=== PATIENT | female | born 1935 | race Caucasian/White ===

== ENCOUNTER 2019-06-21 15:01 | Inpatient (IN) | payer MEDICAID, MEDICARE ==
[~2019-06-21] VITALS: Ht 157.5 cm; Wt 108.0 kg
[2019-06-21 15:01] VITALS: BP_SYST 142
--- NOTE | 2019-06-21 15:01 | NUR ---
Patient to [facility] for evaluation. Side rails up.
--- NOTE | 2019-06-21 15:30 | NUR ---
Patient came to the ER with complaint of shoulder and lower back pain. The patient rated the pain as 6/10. Patient has lost mobility and often bed bound per patient. Patient not presenting any signs of acute distress.
--- NOTE | 2019-06-21 15:40 | NUR ---
АННА Morton at bedside examining patient.
[2019-06-21] MEDS ORDERED: NACL 0.9% 1,000 ML IV ONE ×3 (17:00→20:45)
[2019-06-21] MEDS ORDERED: MORPHINE 4 MG/ML INJ. SYRINGE IVP ONE (17:00)
--- NOTE | 2019-06-21 18:00 | NUR ---
Patient in bed who advised that her pain is now 3/10. Patient is still complaining of discomfort of her lower back. Patient not presenting any signs of acute distress.
[2019-06-21 18:13] LABS: BASOPHILS % (AUTO) 0.4 % (0.0-2.0); EOSINOPHILS # (AUTO) 0.1 K/uL (0.0-0.4); EOSINOPHILS % (AUTO) 0.7 % (0.0-4.0); HEMATOCRIT 34.3 % (36-48); HEMOGLOBIN 11.5 g/dL (12.0-16.0); LYMPHOCYTES % (AUTO) 36.5 % (20.5-51.5); MEAN CORPUSCULAR HEMOGLOBIN 28 pg (27-31); MEAN CORPUSCULAR HGB CONC 34 % (32-36); MEAN CORPUSCULAR VOLUME 82 fL (79.0-98.0); MONOCYTES # (AUTO) 0.6 K/uL (0.0-1.0); MONOCYTES % (AUTO) 5.7 % (1.7-9.3); NEUTROPHILS # (AUTO) 6.2 K/uL (1.8-7.7); NEUTROPHILS % (AUTO) 56.7 % (40.0-70.0); PLATELET COUNT (AUTO) 272 K/uL (130-430); RED BLOOD CELL COUNT(AUTO) 4.16 MIL/uL (4.2-6.2); RED CELL DISTRIBUTION WIDTH 14.1 % (9.0-15.0)
[2019-06-21 18:26] LABS: ANION GAP 11 (5-15); CALCIUM 9.3 mg/dL (8.4-11.0); CREATININE 2.79 mg/dL (0.55-1.30); GLUCOSE 127 mg/dL (70-99); SODIUM SERUM 120 mmol/L (136-145); UREA NITROGEN, BLOOD 38 mg/dL (8-21)
[2019-06-21 18:32] LABS: ALANINE AMINOTRANSFERASE 26 U/L (12-78); ALBUMIN 3.5 g/dL (3.4-4.8); ASPARTATE AMINOTRANSFERASE 32 U/L (10-37); TOTAL BILIRUBIN 0.5 mg/dL (0.0-1.0)
[2019-06-21 18:34] LABS: CHLORIDE 83 mmol/L (98-107)
[2019-06-21 18:55] LABS: BILIRUBIN,URINE NEGATIVE (NEGATIVE); BLOOD, URINE NEGATIVE (NEGATIVE); COLOR,URINE YELLOW (YELLOW); GLUCOSE,URINE NEGATIVE (NEGATIVE); KETONES,URINE NEGATIVE (NEGATIVE); LEUKOCYTE ESTERASE ,URINE TRACE (NEGATIVE); NITRITE, URINE NEGATIVE (NEGATIVE); PROTEIN URINE NEGATIVE (NEGATIVE); UROBILINOGEN,URINE 0.2 (0.2-1.0)
[2019-06-21 19:11] LABS: CLARITY/URINE SLIGHTLY HAZY (CLEAR)
--- NOTE | 2019-06-21 19:26 | NUR ---
Report recieved from MICAELA Zapien to endorse all care.
[2019-06-21] MEDS ORDERED: cefTRIAXone 1 GM IVPB PREMIX 50 ML IV ONE (19:45)
--- NOTE | 2019-06-21 20:10 | NUR ---
MICAELA Paz at bedside medicating pt.
[2019-06-21 20:13] LABS: BACTERIA,URINE FEW /HPF (None Seen); RBC,URINE 0-3 /HPF (0-3)
[2019-06-21 20:14] LABS: FINE GRANULAR CASTS,URINE 0-10 /LPF (None Seen); MUCUS,URINE 2+ /LPF (None Seen)
--- NOTE | 2019-06-21 20:43 | NUR ---
Patient will be admitted to care of [facility]. Admitted to Telemetry unit. Will go to room 103A. Belongings list completed. Complete and up to date summary report printed. SBAR report to be given at bedside with opportunity for questions.
[2019-06-21] MEDS ORDERED: cefTRIAXone 1 GM VIAL IM SCH (21:00)
--- NOTE | 2019-06-21 21:15 | NUR ---
ADMISSION NOTE Received patient from ER via gurney. Patient admitted with diagnosis of CELLULITIS. Patient is awake, alert, oriented. Patient oriented to hospital room, call light, toileting, pain management and safety-teach back done. Patient informed that LUIS will be HIS nurse and that their room number is 124A. Personal belongings checked and Belongings List documented. Call light within reach.
--- NOTE | 2019-06-21 21:27 | NUR ---
Transfer to Telemetry room 103A via ACLS protocol. Licensed nurse present. IV present no signs or symptoms of infiltration.
[2019-06-21] MEDS ORDERED: ACET-2165 PO (21:43)
[2019-06-21] MEDS ORDERED: POTA10TA15 PO (21:43)
[2019-06-21] MEDS ORDERED: GLIP10TA21 PO (21:43)
[2019-06-21] MEDS ORDERED: DEXT30DR6 EACH EYE (21:43)
[2019-06-21] MEDS ORDERED: SENN-278 PO (21:43)
[2019-06-21] MEDS ORDERED: ASCO500T20 PO (21:43)
[2019-06-21] MEDS ORDERED: DOCU-144 PO (21:43)
[2019-06-21] MEDS ORDERED: METO5TAB8 PO (21:43)
[2019-06-21] MEDS ORDERED: GLU500 PO (21:43)
[2019-06-21] MEDS ORDERED: HYDR-4274 PO (21:43)
[2019-06-21] MEDS ORDERED: LOSA100T3 PO (21:43)
[2019-06-21] MEDS ORDERED: MULT1TAB74 PO (21:43)
[2019-06-21] MEDS ORDERED: ANAS1TAB51 PO (21:43)
[2019-06-21] MEDS ORDERED: MOM PO (21:43)
[2019-06-21] MEDS ORDERED: PRO40 PO (21:43)
[2019-06-21] MEDS ORDERED: BISA-79 RC (21:43)
[2019-06-21] MEDS ORDERED: FURO-149 PO (21:43)
[2019-06-21] MEDS ORDERED: AMLO5TAB4 PO (21:43)
[2019-06-21] MEDS ORDERED: ROPI0.252 PO (21:43)
--- NOTE | 2019-06-21 21:44 | NUR ---
Medication reconciliation completed with information provided by [facility]. Any prior medication reconciliation on file was reviewed and corrected.
--- NOTE | 2019-06-21 21:47 | NUR ---
ADMISSION NOTE Received patient from ER via gurney. Patient admitted with diagnosis of UTI/HYPONATREMIA. Patient is awake, alert, oriented X 1. Patient oriented to hospital room, call light, toileting, pain management and safety-teach back done. Patient informed that ERIC will be HER nurse and that their room number is 103A. Personal belongings checked and Belongings List documented. Call light within reach.
--- NOTE | 2019-06-21 22:00 | NUR ---
INITIAL NOTES PATIENT IS RESTING IN BED AND STABLE. NO S/S OF RESPIRATORY DISTRESS NOTED. PATIENT UNSUCCESSFULLY DEMONSTRATES USAGE OF CALL LIGHT AT THIS TIME. WILL CONTINUE TO MONITOR. BED IS LOCKED, ALARMED, AND AT THE LOWEST POSITION. FALL, SAFETY, ASPIRATION, AND RESPIRATORY PRECAUTIONS WILL BE IN PLACE THROUGHOUT THE SHIFT. PLAN OF CARE IS DISCUSSED WITH PATIENT AT THIS TIME.
[2019-06-21 22:01] VITALS: BP_SYST 138
[2019-06-21] MEDS: NACL 0.9% 1,000 ML IV SCH (22:52)
[2019-06-21] MEDS ORDERED: ACETAMINOPHEN 325 MG TABLET PO PRN (23:00)
[2019-06-21] MEDS ORDERED: MILK OF MAGNESIA 30 ML UDC PO PRN (23:00)
[2019-06-21] MEDS ORDERED: BISACODYL 5 MG TABLET.DR (DULCOLAX) PO PRN (23:00)
[2019-06-21] MEDS: HYDROcodone/ACETAMIN 10-325 MG TAB PO PRN (23:06)
[2019-06-22] VITALS: BP_SYST 146
--- NOTE | 2019-06-22 | NUR ---
ROUNDING PATIENT IS RESTING IN BED AND STABLE. NO S/S OF RESPIRATORY DISTRESS NOTED. CALL LIGHT IN REACH. BED IS LOCKED, ALARMED, AND AT THE LOWEST POSITION.
--- NOTE | 2019-06-22 00:04 | NUR ---
Nephro Consultation Paged Reason for consultation: Renal Failure Was consult called: Yes Person who was notified: Madalyn Consulting Physician: Dr Worley Quality Assurance Technician Quality Assurance Technician Specialty: Nephrology Ordered By: Dr Sahu
[2019-06-22] MEDS ORDERED: FLU VACC TS2019(65UP)/MF59C/PF 45 MCG/0.5 ML SYRINGE I.M. PRN (03:00)
--- NOTE | 2019-06-22 04:00 | NUR ---
ROUNDING PATIENT URINATED AT THIS TIME. PATIENT CLEANED AND CHANGED. PATIENT TOLERATED WELL. NO S/S OF RESPIRATORY DISTRESS. CALL LIGHT IN REACH. BED IS LOCKED, ALARMED, AND AT THE LOWEST POSITION.
--- NOTE | 2019-06-22 06:00 | NUR ---
CLOSING NOTES PATIENT IS STABLE AND LAYING IN BED. NO S/S OF RESPIRATORY DISTRESS NOTED. CALL LIGHT IN REACH. BED IS LOCKED, ALARMED, AND AT THE LOWEST POSITION. FALL, SAFETY, ASPIRATION, AND RESPIRATORY PRECAUTIONS HAS BEEN IN PLACE THROUGHOUT THE SHIFT. ALL NEEDS MET. WILL CONTINUE TO MONITOR UNTIL REPORT IS GIVEN TO AM NURSE BY BEDSIDE.
[2019-06-22] MEDS: NACL 0.9% 1,000 ML IV SCH ×2 (06:19→20:16)
[2019-06-22 07:19] LABS: BASOPHILS # (AUTO) 0.1 K/uL (0.0-0.2); BASOPHILS % (AUTO) 0.6 % (0.0-2.0); EOSINOPHILS # (AUTO) 0.1 K/uL (0.0-0.4); EOSINOPHILS % (AUTO) 0.8 % (0.0-4.0); HEMATOCRIT 32.9 % (36-48); HEMOGLOBIN 11.1 g/dL (12.0-16.0); LYMPHOCYTES # (AUTO) 3.3 K/uL (1.0-5.5); LYMPHOCYTES % (AUTO) 36.7 % (20.5-51.5); MEAN CORPUSCULAR HEMOGLOBIN 28 pg (27-31); MEAN CORPUSCULAR HGB CONC 34 % (32-36); MEAN CORPUSCULAR VOLUME 82 fL (79.0-98.0); MONOCYTES # (AUTO) 0.7 K/uL (0.0-1.0); MONOCYTES % (AUTO) 7.8 % (1.7-9.3); NEUTROPHILS # (AUTO) 4.8 K/uL (1.8-7.7); NEUTROPHILS % (AUTO) 54.1 % (40.0-70.0); PLATELET COUNT (AUTO) 238 K/uL (130-430); RED BLOOD CELL COUNT(AUTO) 3.99 MIL/uL (4.2-6.2)
--- NOTE | 2019-06-22 07:35 | NUR ---
INITIAL NOTE PT RESTING IN BED, NO ACUTE DISTRESS NOTED, BREATHING EVEN AND UNLABORED. IVF INFUSING WELL. SCD'S OFF AT THIS TIME. CALL LIGHT WITHIN REACH, BED IN LOW AND LOCKED POSITION WITH BED ALARM ON.
--- NOTE | 2019-06-22 07:45 | NUR ---
CRITICAL LAB/PAGED DR. SRIVASTAVA AWAITING RETURN CALL.
[2019-06-22 07:46] LABS: ANION GAP 7 (5-15); CALCIUM 8.7 mg/dL (8.4-11.0); CHLORIDE 90 mmol/L (98-107); CREATININE 2.15 mg/dL (0.55-1.30); GLUCOSE 95 mg/dL (70-99); POTASSIUM 4.1 mmol/L (3.5-5.1); SODIUM SERUM 126 mmol/L (136-145); UREA NITROGEN, BLOOD 34 mg/dL (8-21)
[2019-06-22 08:00] VITALS: BP_SYST 134
[2019-06-22 08:29] LABS: CKMB RELATIVE INDEX 0.9 (0.0-2.9)
[2019-06-22] MEDS ORDERED: cefTRIAXone 1 GM VIAL IV SCH (09:00)
[2019-06-22] MEDS: roPINIRole HCL 0.25 MG ( REQUIP )TABLET PO SCH (09:11)
[2019-06-22] MEDS: ANASTROZOLE 1 MG TABLET (ARIMIDEX) PO SCH (09:12)
[2019-06-22] MEDS: glipiZIDE XL 5 MG TAB ( GLUCOTROL XL) PO SCH ×2 (09:12→20:17)
[2019-06-22] MEDS: DOCUSATE SODIUM 100 MG CAPSULE PO SCH (09:13)
[2019-06-22] MEDS: SENNOSIDES/DOCUSATE SODIUM 1 TAB TABLET(SENOKOT-S) PO SCH (09:13)
[2019-06-22] MEDS: METOLAZONE 5 MG TABLET PO SCH (09:13)
[2019-06-22] MEDS: PANTOPRAZOLE SODIUM 40 MG TAB PO SCH (09:14)
[2019-06-22] MEDS: ASCORBIC ACID 500 MG TABLET PO SCH (09:14)
[2019-06-22] MEDS: amLODIPine BESYLATE 5 MG TABLET PO SCH (09:14)
[2019-06-22] MEDS: POTASSIUM CHLORIDE 10 MEQ TAB.PRT.SR PO SCH (09:14)
[2019-06-22] MEDS: LOSARTAN POTASSIUM 50 MG TABLET (COZAAR) PO SCH (09:15)
[2019-06-22] MEDS: HYDROcodone/ACETAMIN 10-325 MG TAB PO PRN ×3 (09:25→20:20)
--- NOTE | 2019-06-22 09:42 | NUR ---
Nutrition Update Jameson Scale 14 noted. Pt admitted for UTI/hyponatremia. Diet: CCHO, mechanical soft BMI: 43.5 kg/m2 RD to follow per nutrition care standards.
[2019-06-22] MEDS ORDERED: CEFEPIME IV SCH (11:00)
[2019-06-22] MEDS ORDERED: D5W IV SCH (11:00)
[2019-06-22] MEDS: INSULIN REGULAR, HUMAN 100 UNITS/ML, 10 ML VIAL (humuLIN R) SUBCUT PRN ×2 (11:20→20:19)
[2019-06-22] MEDS: PEG 400/HYPROMELLOSE/GLYCERIN 15 ML DROPS EACH EYE SCH ×2 (11:21→20:16)
--- NOTE | 2019-06-22 11:30 | NUR ---
BSG 152/ 2D ECHO AT BEDSIDE EDUCATED PT ON INSULIN COVERAGE, PT VERBALIZED UNDERSTANDING. 2 UNITS PER SLIDING SCALE OF REGULAR INSULIN ADMINISTERED.
[2019-06-22 12:00] VITALS: BP_SYST 102
--- NOTE | 2019-06-22 13:30 | NUR ---
RN ROUNDS PT AWAKE, WATCHING TELEVISION. PAIN CONTROLLED AT THIS TIME. WILL CONTINUE TO MONITOR.
--- NOTE | 2019-06-22 16:07 | NUR ---
INCONTINENT PT INCONTINENT OF BLADDER. CHANGED PT AND REPOSITIONED FOR COMFORT. PT TOLERATED WELL.
[2019-06-22 16:32] VITALS: BP_SYST 129
--- NOTE | 2019-06-22 18:00 | NUR ---
RN ROUNDS NO PAGAN IN ASSESSMENT, PT AWAKE, WATCHING TELEVISION, PAIN CONTROLLED AT THIS TIME. WILL CONTINUE TO MONITOR.
--- NOTE | 2019-06-22 19:05 | NUR ---
OPENING NOTE: Patient is awake, AOx4. No s/s of acute distress. Breathing is even and unlabored. IVF is infusing well. IV site has no s/s of infection or infiltration. SCDs are attached and operating. Bed alarm in place. Bed is locked and in lowest position. Call light in place.
--- NOTE | 2019-06-22 19:25 | NUR ---
DR. CAROLA OLSON AT BEDSIDE EXAMINING PT. INFORMED MD OF PTS ELEVATED TROPONIN 0.122, SHOWED PT BUG BITE ON RIGHT LOWER GARCIA. NEW ORDERS RECEIVED, BACTROBAN OINTMENT TO BE APPLIED ON WOUND AND COVERED WITH FOAM DRESSING, CARDIO CONSULT WITH DR. ARIAS TO BE ORDERED. VERIFIED WITH READ BACK.
--- NOTE | 2019-06-22 19:30 | NUR ---
CLOSING NOTE PT AWAKE, DENIES ANY PAIN OR DISCOMFORT. IVF INFUSING WELL. RIGHT SCD OFF AT THIS TIME TO KEEP WOUND OPEN TO AIR PER MD ORDERS UNTIL OINTMENT IS ORDERED. CALL LIGHT WITHIN REACH, BED IN LOW AND LOCKED POSITION WITH BED ALARM ON. ALL NEEDS MET THROUGHOUT SHIFT. PT CARE ENDORSED TO DOUBLE ENDING MACHINE OPERATOR RNANDRÉS.
[2019-06-22 20:00] VITALS: BP_SYST 139
[2019-06-22 20:30] LABS: CKMB RELATIVE INDEX 0.4 (0.0-2.9); CREATINE KINASE MB 7.5 ng/mL (0-3.6)
--- NOTE | 2019-06-22 21:20 | NUR ---
PAIN: Patient is in bed without signs of acute distress. C/o of pain /. Breathing is even and unlabored. PRN medication given. Call light in place. Bed alarm on. Bed is locked in the lowest position. Will continue to monitor.
--- NOTE | 2019-06-22 23:20 | NUR ---
ROUNDS/DARLENE CARE: Patient in awake in bed. No signs of acute distress. Breathing is even and unlabored. Darlene care done by RN. Patient tolerated well. Call light in place. Bed alarm on. Bed is locked and in lowest position. Will continue to monitor.
[2019-06-23] VITALS: BP_SYST 138
[2019-06-23] MEDS: HYDROcodone/ACETAMIN 10-325 MG TAB PO PRN ×5 (00:47→20:38)
--- NOTE | 2019-06-23 01:00 | NUR ---
ROUNDS/DARLENE CARE/LINEN CHANGE: Patient is awake in bed without signs of acute distress. Darlene care and linen change done by RN and LINTER DRIER OPERATOR. Patient tolerated well. Call light in place. Bed alarm is on. Bed is locked in the lowest position. Will continue to monitor.
--- NOTE | 2019-06-23 03:00 | NUR ---
NEW IV Previous IV site got accidentally pulled out, catheter fully intact, no active bleeding noted. New IV site at right AC, 22 gauge. Patient tolerated well. IVF infusing well. Call light with patient. Bed alarm on. Will continue to monitor.
--- NOTE | 2019-06-23 05:00 | NUR ---
ROUNDS: Patient is asleep at this time. Breathing is even and unlabored. Call light within reach. Bed alarm on. Will continue to monitor.
[2019-06-23] MEDS: INSULIN REGULAR, HUMAN 100 UNITS/ML, 10 ML VIAL (humuLIN R) SUBCUT PRN ×3 (06:12→20:36)
--- NOTE | 2019-06-23 06:33 | NUR ---
ACCU CHECK/SNACKS GIVEN/CLOSING NOTE: Patient is resting at this time. Breathing is even and unlabored. IVF are infusing well. Skin is warm and dry. No signs of hypoglycemia. Accu check done, BS at 76, snacks given to patient, patient tolerated well. IV site is without signs of infiltration or infection. SCDs are attached and operating. Fall and safety precautions met throughout the shift. All needs met throughout the shift. Will continue to monitor until care endorsed to dayshift nurse.
[2019-06-23 07:19] LABS: BASOPHILS % (AUTO) 0.5 % (0.0-2.0); EOSINOPHILS # (AUTO) 0.2 K/uL (0.0-0.4); EOSINOPHILS % (AUTO) 2.1 % (0.0-4.0); HEMATOCRIT 32.5 % (36-48); HEMOGLOBIN 10.7 g/dL (12.0-16.0); LYMPHOCYTES # (AUTO) 2.7 K/uL (1.0-5.5); LYMPHOCYTES % (AUTO) 36.6 % (20.5-51.5); MEAN CORPUSCULAR HEMOGLOBIN 28 pg (27-31); MEAN CORPUSCULAR HGB CONC 33 % (32-36); MEAN CORPUSCULAR VOLUME 84 fL (79.0-98.0); MONOCYTES # (AUTO) 0.6 K/uL (0.0-1.0); NEUTROPHILS # (AUTO) 3.9 K/uL (1.8-7.7); NEUTROPHILS % (AUTO) 52.8 % (40.0-70.0); PLATELET COUNT (AUTO) 234 K/uL (130-430); RED BLOOD CELL COUNT(AUTO) 3.88 MIL/uL (4.2-6.2); WHITE BLOOD COUNT (AUTO) 7.4 K/uL (4.8-10.8)
[2019-06-23 07:57] LABS: ALANINE AMINOTRANSFERASE 32 U/L (12-78); ALBUMIN 3.1 g/dL (3.4-4.8); ANION GAP 8 (5-15); ASPARTATE AMINOTRANSFERASE 68 U/L (10-37); CALCIUM 9.2 mg/dL (8.4-11.0); CHLORIDE 94 mmol/L (98-107); CREATININE 1.49 mg/dL (0.55-1.30); GLUCOSE 77 mg/dL (70-99); SODIUM SERUM 131 mmol/L (136-145); TOTAL BILIRUBIN 0.6 mg/dL (0.0-1.0); UREA NITROGEN, BLOOD 27 mg/dL (8-21)
--- NOTE | 2019-06-23 07:57 | NUR ---
INITIAL NOTE PT RESTING IN BED, NO ACUTE DISTRESS NOTED, BREATHING EVEN AND UNLABORED. IVF INFUSING WELL. LEFT SCD IN PLACE. RIGHT LEG HAS BUG BITE, PER MD DOES NOT WANT SCD ON RIGHT LEG. CALL LIGHT WITHIN REACH, BED IN LOW AND LOCKED POSITION WITH BED ALARM ON.
--- NOTE | 2019-06-23 08:50 | NUR ---
Cardiac consult called; for Dr. Reardon, regarding elevated troponins, ordered by Dr. Sahu, spoke with Sofie.
[2019-06-23] MEDS: PEG 400/HYPROMELLOSE/GLYCERIN 15 ML DROPS EACH EYE SCH ×2 (09:03→20:37)
[2019-06-23] MEDS: METOLAZONE 5 MG TABLET PO SCH (09:03)
[2019-06-23] MEDS: glipiZIDE XL 5 MG TAB ( GLUCOTROL XL) PO SCH ×2 (09:03→20:37)
[2019-06-23] MEDS: roPINIRole HCL 0.25 MG ( REQUIP )TABLET PO SCH (09:03)
[2019-06-23] MEDS: ASCORBIC ACID 500 MG TABLET PO SCH (09:04)
[2019-06-23] MEDS: SENNOSIDES/DOCUSATE SODIUM 1 TAB TABLET(SENOKOT-S) PO SCH (09:04)
[2019-06-23] MEDS: LOSARTAN POTASSIUM 50 MG TABLET (COZAAR) PO SCH (09:04)
[2019-06-23] MEDS: amLODIPine BESYLATE 5 MG TABLET PO SCH (09:04)
[2019-06-23] MEDS: PANTOPRAZOLE SODIUM 40 MG TAB PO SCH (09:04)
[2019-06-23] MEDS: DOCUSATE SODIUM 100 MG CAPSULE PO SCH (09:04)
[2019-06-23] MEDS: POTASSIUM CHLORIDE 10 MEQ TAB.PRT.SR PO SCH (09:04)
[2019-06-23] MEDS: ANASTROZOLE 1 MG TABLET (ARIMIDEX) PO SCH (09:04)
--- NOTE | 2019-06-23 09:42 | NUR ---
CRITICAL LAB/ DR. JUANA OLSON AT BEDSIDE EXAMINING PT. MITCHELL OLSON OF TROPONIN LEVELS TRENDING DOWN. EKG BEING DONE AT BEDSIDE.
[2019-06-23 09:58] VITALS: BP_SYST 121
[2019-06-23] MEDS ORDERED: ASPIRIN 81 MG TAB.CHEW PO ONE (10:15)
[2019-06-23] MEDS: NACL 0.9% 1,000 ML IV SCH ×2 (10:28→23:58)
[2019-06-23] MEDS ORDERED: CEFEPIME 0.5 GM in D5W 50 ML IV SCH (12:00)
--- NOTE | 2019-06-23 12:00 | NUR ---
BOWEL MOVEMENT PT INCONTINENT OF BOWEL. CHANGED LINEN AND PATIENT GOWN. REPOSITIONED FOR COMFORT. PT TOLERATED WELL.
[2019-06-23 12:12] VITALS: BP_SYST 135
--- NOTE | 2019-06-23 14:00 | NUR ---
MICAELA KRAMER APPLIED OINTMENT TO WOUND, COVERED WITH FOAM DRESSING. PT TOLERATED WELL.
[2019-06-23] MEDS: MUPIROCIN 2% TOPICAL OINTMENT 22 GM TP PRN (14:23)
--- NOTE | 2019-06-23 15:01 | NUR ---
Dietitian Recommendations * Recommend continuing MICHELLE, purelio diet (ONS Glucerelayne TID comes standard w/ this meal; provides 660 kcal/day, 30 gm protein/day) * Encourage increase PO intakes LP, RD Please refer to Nutrition Assessment for details. Addendum: 06/23/19 at [address] Amended: Links added.
--- NOTE | 2019-06-23 16:00 | NUR ---
RN ROUNDS NO CHANGE IN ASSESSMENT, WILL CONTINUE TO MONITOR.
[2019-06-23 16:10] VITALS: BP_SYST 153
--- NOTE | 2019-06-23 19:20 | NUR ---
OPENING NOTE: Bedside report received by dayshift nurse. Patient is awake, AOx4. No s/s of acute distress. Breathing is even and unlabored. IVF infusing well. IV site without signs of infiltration or infection. SCDs not attached at this time. Patient c/o pain bilateral lower extremities. Call light with patient. Bed alarm on. Bed locked in lowest position. Will continue to monitor.
--- NOTE | 2019-06-23 19:25 | NUR ---
CLOSING NOTE PT RESTING IN BED. NO ACUTE DISTRESS NOTED, BREATHING EVEN AND UNLABORED. IVF INFUSING WELL. SCD'S OFF AT THIS TIME DUE TO IRRITATION OF RIGHT CALF. MD INFORMED. CALL LIGHT WITHIN REACH, BED IN LOW AND LOCKED POSITION WITH BED ALARM ON. ALL NEEDS MET THROUGHOUT SHIFT. PT CARE ENDORSED TO TELEVISION EQUIPMENT OPERATOR RN.
[2019-06-23 20:00] VITALS: BP_SYST 130
--- NOTE | 2019-06-23 21:43 | NUR ---
paged paged for Dr Baeza. dialed . s/w Velma.
[2019-06-23] MEDS ORDERED: ENOXAPARIN SODIUM 100 MG/ML SYRINGE SUBCUT ONE (21:53)
--- NOTE | 2019-06-23 21:58 | NUR ---
SPOKE TO DR. ABERNATHY RE: DOPPLER RESULT Spoke to Dr. Abernathy at this time regarding prelim results of venous doppler. Results read to MD. ordered Lovenox 100mg SQ Q12H. Will carry out orders.
[2019-06-23 23:31] VITALS: BP_SYST 104
--- NOTE | 2019-06-23 23:45 | NUR ---
DARLENE CARE: Patient awake at this time. Darlene care done by RN. Patient tolerated well. Breathing is even and unlabored. Call light with patient. Bed alarm on. All needs met at this time. Will continue to monitor.
--- NOTE | 2019-06-24 01:23 | NUR ---
ROUNDS: Patient is resting at this time. Patient states she is comfortable at this time. Call light with patient. Bed alarm on. Will continue to monitor.
--- NOTE | 2019-06-24 03:30 | NUR ---
ROUNDS: Patient is asleep at this time. Breathing is even and unlabored. Call light within reach. Bed alarm on. Will continue to monitor.
[2019-06-24] MEDS: HYDROcodone/ACETAMIN 10-325 MG TAB PO PRN ×4 (04:31→21:11)
--- NOTE | 2019-06-24 05:15 | NUR ---
ROUNDS: Patient is asleep at this time. Breathing is even and unlabored. Call light with patient. Bed alarm on. Will continue to monitor.
--- NOTE | 2019-06-24 06:38 | NUR ---
ACCU CHECK/SNACKS GIVEN/CLOSING NOTE: Patient is resting at this time. Breathing is even and unlabored. IVF are infusing well. Skin is warm and dry. No signs of hypoglycemia. Accu check done, BS at 86, IV site is without signs of infiltration or infection. SCDs are attached and operating. Fall and safety precautions met throughout the shift. All needs met throughout the shift. Will continue to monitor until care endorsed to dayshift nurse. Addendum: 06/24/19 at 0639 by Kassandra Finn RN CORRECTION: SCDs are removed due to patient c/o of pain.
[2019-06-24] MEDS: INSULIN REGULAR, HUMAN 100 UNITS/ML, 10 ML VIAL (humuLIN R) SUBCUT PRN ×2 (06:44→11:21)
[2019-06-24 07:35] LABS: ANION GAP 7 (5-15); CALCIUM 9.1 mg/dL (8.4-11.0); CHLORIDE 95 mmol/L (98-107); GLUCOSE 70 mg/dL (70-99); POTASSIUM 4.2 mmol/L (3.5-5.1); SODIUM SERUM 127 mmol/L (136-145)
[2019-06-24 07:36] LABS: ALANINE AMINOTRANSFERASE 36 U/L (12-78); ASPARTATE AMINOTRANSFERASE 56 U/L (10-37); BASOPHILS % (AUTO) 0.6 % (0.0-2.0); CHOLESTEROL 169 mg/dL (<200); CREATININE 1.12 mg/dL (0.55-1.30); EOSINOPHILS # (AUTO) 0.2 K/uL (0.0-0.4); EOSINOPHILS % (AUTO) 2.2 % (0.0-4.0); HDL CHOLESTEROL 76 mg/dL (>55); HEMATOCRIT 31.1 % (36-48); HEMOGLOBIN 10.3 g/dL (12.0-16.0); LDL CHOLESTEROL 73 mg/dL (<100); LYMPHOCYTES # (AUTO) 2.6 K/uL (1.0-5.5); LYMPHOCYTES % (AUTO) 35.3 % (20.5-51.5); MEAN CORPUSCULAR HEMOGLOBIN 28 pg (27-31); MEAN CORPUSCULAR HGB CONC 33 % (32-36); MEAN CORPUSCULAR VOLUME 84 fL (79.0-98.0); MONOCYTES # (AUTO) 0.5 K/uL (0.0-1.0); MONOCYTES % (AUTO) 7.2 % (1.7-9.3); NEUTROPHILS # (AUTO) 4.1 K/uL (1.8-7.7); NEUTROPHILS % (AUTO) 54.7 % (40.0-70.0); PLATELET COUNT (AUTO) 236 K/uL (130-430); RED CELL DISTRIBUTION WIDTH 14.1 % (9.0-15.0); TOTAL BILIRUBIN 0.6 mg/dL (0.0-1.0); TRIGLYCERIDES 63 mg/dL (30-150); UREA NITROGEN, BLOOD 22 mg/dL (8-21); WHITE BLOOD COUNT (AUTO) 7.5 K/uL (4.8-10.8)
[2019-06-24 08:00] VITALS: BP_SYST 122
[2019-06-24] MEDS: POTASSIUM CHLORIDE 10 MEQ TAB.PRT.SR PO SCH (08:55)
[2019-06-24] MEDS: amLODIPine BESYLATE 5 MG TABLET PO SCH (08:55)
[2019-06-24] MEDS: glipiZIDE XL 5 MG TAB ( GLUCOTROL XL) PO SCH ×2 (08:55→21:37)
[2019-06-24] MEDS: SENNOSIDES/DOCUSATE SODIUM 1 TAB TABLET(SENOKOT-S) PO SCH (08:55)
[2019-06-24] MEDS: LOSARTAN POTASSIUM 50 MG TABLET (COZAAR) PO SCH (08:55)
[2019-06-24] MEDS: roPINIRole HCL 0.25 MG ( REQUIP )TABLET PO SCH (08:55)
[2019-06-24] MEDS: PANTOPRAZOLE SODIUM 40 MG TAB PO SCH (08:56)
[2019-06-24] MEDS: ANASTROZOLE 1 MG TABLET (ARIMIDEX) PO SCH (08:56)
[2019-06-24] MEDS: ASCORBIC ACID 500 MG TABLET PO SCH (08:56)
[2019-06-24] MEDS: ASPIRIN 81 MG TAB.CHEW PO SCH (08:56)
[2019-06-24] MEDS: MUPIROCIN 2% TOPICAL OINTMENT 22 GM TP PRN (08:56)
[2019-06-24] MEDS: DOCUSATE SODIUM 100 MG CAPSULE PO SCH (08:56)
[2019-06-24] MEDS: PEG 400/HYPROMELLOSE/GLYCERIN 15 ML DROPS EACH EYE SCH ×2 (08:56→21:12)
--- NOTE | 2019-06-24 09:00 | NUR ---
RN ROUNDS/DR. ARIAS MORNING MEDICATIONS ADMINISTERED. PT COMPLAINING OF RIGHT SIDE PAIN. PRN NORCO ADMINISTERED. MD AT BEDSIDE EXAMINING PT.
[2019-06-24 10:30] LABS: CKMB RELATIVE INDEX 0.3 (0.0-2.9); CREATINE KINASE MB 2.7 ng/mL (0-3.6)
--- NOTE | 2019-06-24 11:00 | NUR ---
RN ROUNDS INFORMED PT THAT THEY WILL BE DOING A REPEAT VENOUS DOPPLER. PT VERBALIZED UNDERSTANDING. DRESSING CHANGED ON RIGHT LOWER EXTREMITY, PT TOLERATED WELL.
[2019-06-24] MEDS: CEFEPIME 1 GM in D5W 50 ML IV SCH (11:19)
[2019-06-24] MEDS: NACL 0.9% 1,000 ML IV SCH (11:25)
[2019-06-24 12:13] VITALS: BP_SYST 123
--- NOTE | 2019-06-24 13:00 | NUR ---
RN ROUNDS PT INCONTINENT OF BOWEL AND BLADDER. CHANGED PT AND LINEN. REPOSITIONED FOR COMFORT.
--- NOTE | 2019-06-24 15:16 | NUR ---
PAIN MEDICATION PT COMPLAINING OF LEFT SIDE LEG PAIN. EDUCATED PT ON USES AND SIDE EFFECTS OF NORCO. PT VERBALIZED UNDERSTANDING. PRN NORCO ADMINISTERED.
[2019-06-24 16:11] VITALS: BP_SYST 131
--- NOTE | 2019-06-24 17:46 | NUR ---
MCIAELA KRAMER/DR. JOSEMANUEL OLSON AT BEDSIDE EXAMINING PT. INFORMED MD THAT REPEAT OF VENOUS DOPPLER RESULTED NEGATIVE FOR DVT BILATERALLY. PT IS COMPLAINING OF LEFT LEG PAIN THAT RADIATES DOWN TO HEEL. MD TO PUT IN NEW ORDERS.
--- NOTE | 2019-06-24 17:52 | NUR ---
Neuro consult called: for Dr. Tolentino (Dr. Feliciano cotton tipper), regarding tingling/numbness/pain, spoke with Salena.
--- NOTE | 2019-06-24 18:57 | NUR ---
CLOSING NOTE PT RESTING IN BED, NO ACUTE DISTRESS NOTED, BREATHING EVEN AND UNLABORED. IVF INFUSING WELL. SCD'S OFF AT THIS TIME PER PT REQUEST. CALL LIGHT WITH IN REACH, BED IN LOW AND LOCKED POSITION WITH BED ALARM ON. ALL NEEDS MET THROUGHOUT SHIFT. WILL CONTINUE TO MONITOR UNTIL PT CARE IS ENDORSED TO TRAINING AND DEVELOPMENT ASSISTANT RN.
--- NOTE | 2019-06-24 19:45 | NUR ---
A/A/ OX3.DENIES ANY DISCOMFORT @ THIS TIME. DENIES ANY SOB. O2 SAT ON RA 95%.IVF NS @ 50 ML/HR INFUSING WELL ON HER RAC. SCD IN PLACE.INSTRUCTED TO USE CALL LIGHT NEEDED;WITHIN REACH.
[2019-06-24 20:00] VITALS: BP_SYST 138
--- NOTE | 2019-06-24 20:00 | NUR ---
AFEBRILE.BP 138/71.TELE SHOWED SR.
--- NOTE | 2019-06-24 21:11 | NUR ---
FINGER STICK BLD SUGAR 137. C/O RIGHT ACHING LEG PAIN SCALE 8/10.NORCO 1 TAB PO ADM. SNACKS GIVEN.
--- NOTE | 2019-06-24 22:11 | NUR ---
PER PT PAIN ON HER RIGHT LEG WITH RELIEF POST NORCO
[2019-06-24] MEDS ORDERED: ENOXAPARIN SODIUM 60 MG/0.6 ML SYRINGE SUBCUT SCH (23:00)
[2019-06-24 23:22] VITALS: BP_SYST 141
--- NOTE | 2019-06-25 | NUR ---
A/A DENIES ANY DISCOMFORT @ THIS TIME.IVF INFUSING WELL.
[2019-06-25] MEDS: NACL 0.9% 1,000 ML IV SCH (00:20)
--- NOTE | 2019-06-25 02:00 | NUR ---
RESTING COMFORTABLY IN NO ACUTE DISTRESS.
--- NOTE | 2019-06-25 04:00 | NUR ---
ASLEEP IN NO ACUTE DISTRESS.TELE SHOWED SR.
[2019-06-25] MEDS: HYDROcodone/ACETAMIN 10-325 MG TAB PO PRN ×3 (05:05→20:16)
--- NOTE | 2019-06-25 06:30 | NUR ---
FINGER STICK BLD SUGAR 72.OJ ADM.
--- NOTE | 2019-06-25 06:45 | NUR ---
ENDORSED IN NO ACUTE DISTRESS.SAFETY MAINTAINED.IVF INFUSING WELL.NO S/S OF HYPO/HYPERGLYCEMIA NOTED.
[2019-06-25 07:45] VITALS: BP_SYST 125
--- NOTE | 2019-06-25 07:49 | NUR ---
AM ROUNDS: Patient is oriented x4. Complaints of mild pain on the left leg. IV fluids NS 50 cc/hr infusing on the righAC gauge 22, no redness noted. Positioned patient for breakfast. Call light within reach.
[2019-06-25] MEDS: PEG 400/HYPROMELLOSE/GLYCERIN 15 ML DROPS EACH EYE SCH ×2 (08:54→20:15)
[2019-06-25] MEDS: ANASTROZOLE 1 MG TABLET (ARIMIDEX) PO SCH (08:55)
[2019-06-25] MEDS: SENNOSIDES/DOCUSATE SODIUM 1 TAB TABLET(SENOKOT-S) PO SCH (08:55)
[2019-06-25] MEDS: roPINIRole HCL 0.25 MG ( REQUIP )TABLET PO SCH (08:55)
[2019-06-25] MEDS: LOSARTAN POTASSIUM 50 MG TABLET (COZAAR) PO SCH (08:56)
[2019-06-25] MEDS: amLODIPine BESYLATE 5 MG TABLET PO SCH (08:56)
[2019-06-25] MEDS: glipiZIDE XL 5 MG TAB ( GLUCOTROL XL) PO SCH ×2 (08:56→20:15)
[2019-06-25] MEDS: DOCUSATE SODIUM 100 MG CAPSULE PO SCH (08:56)
[2019-06-25] MEDS: POTASSIUM CHLORIDE 10 MEQ TAB.PRT.SR PO SCH (08:57)
[2019-06-25] MEDS: ASPIRIN 81 MG TAB.CHEW PO SCH (08:57)
[2019-06-25] MEDS: PANTOPRAZOLE SODIUM 40 MG TAB PO SCH (08:57)
[2019-06-25] MEDS: ASCORBIC ACID 500 MG TABLET PO SCH (08:57)
[2019-06-25] MEDS: CEFEPIME 1 GM in D5W 50 ML IV SCH (10:50)
[2019-06-25 12:00] VITALS: BP_SYST 130
--- NOTE | 2019-06-25 12:11 | NUR ---
Pain: Medicated for 8/10 pain on the left side of the thigh.
--- NOTE | 2019-06-25 14:20 | NUR ---
S/P MRI: Back from MRI. IV fluids resumed. Incontinence care done.
--- NOTE | 2019-06-25 14:24 | NUR ---
CALLED FOLLOW UP CONSULT FOR SPOKE TO SYED.
--- NOTE | 2019-06-25 15:30 | NUR ---
Neuro Consult: Seen by Dr. Teodora Tolentino, advised patient to continue Aspirin and to follow up with him in two weeks for nerve study.
[2019-06-25 16:30] VITALS: BP_SYST 126
[2019-06-25] MEDS: MUPIROCIN 2% TOPICAL OINTMENT 22 GM TP PRN (17:22)
[2019-06-25 18:08] VITALS: BP_SYST 126
--- NOTE | 2019-06-25 18:20 | NUR ---
End of Shift: Needs attended. Will be discharged back to SNF per Dr. Sahu.
--- NOTE | 2019-06-25 18:44 | NUR ---
CALLED [facility] I SPOKE WITH ERNIE ARRANGED TRANSFER TO [facility] PICKED UP TIME WILL BE AT 2100
--- NOTE | 2019-06-25 19:50 | NUR ---
Opening Note Received report from ezio RN, patient is resting in bed, no signs of acute distress, A/Ox4, even and unlabored breathing on room air, IV to right AC intact, patent/benign, NS @50ml/hr infusing well. Safety, fall, and aspiration precautions in place, bed locked and in lowest position, three side rails up, bed alarm on, call light with patient, call light with patient, will continue to monitor.
[2019-06-25 20:00] VITALS: BP_SYST 133
--- NOTE | 2019-06-25 20:16 | NUR ---
PAIN Patient complains of 10/10 pain to her left lower extremity. Froid 10-325mg PO indicated for pain control. Educated patient on medication uses and potential side effects, patient able to verbalize understanding, administered medication per MD order patient tolerated well. All safety precautions in place, call light with patient, will continue to monitor.
--- NOTE | 2019-06-25 20:19 | NUR ---
Blood Sugar Patient blood sugar is 138. No insulin coverage indicated per insulin sliding scale. Will continue to monitor.
--- NOTE | 2019-06-25 21:08 | NUR ---
PT TRANSFERRED Transfer packet with Transfer Orders and Medication Reconciliation form given to EMT with report. Exitcare provided. [facility] ID band removed, replaced with ID band with pt's name and . IV catheter removed, intact and dressing applied, no active bleeding. All belongings sent with patient. Patient left floor via gurney escorted by EMT in no distress.
== END 2019-06-25 21:10 | DRG 469 ==
LOC: SED 15:01 → STU 20:38
PROVIDERS: ADMIT Family Medicine; ATTEND Family Medicine
DX: N17.9 Acute kidney failure, unspecified (principal); G93.41 Metabolic encephalopathy; E11.22 Type 2 diabetes mellitus with diabetic chronic kidney disease; E11.649 Type 2 diabetes mellitus with hypoglycemia without coma; E66.01 Morbid (severe) obesity due to excess calories; I24.8 Other forms of acute ischemic heart disease; E86.0 Dehydration; E87.1 Hypo-osmolality and hyponatremia; N39.0 Urinary tract infection, site not specified; I12.9 Hypertensive chronic kidney disease with stage 1 through stage 4 chronic kidney disease, or unspecified chronic kidney disease; N18.9 Chronic kidney disease, unspecified; F03.90 Unspecified dementia, unspecified severity, without behavioral disturbance, psychotic disturbance, mood disturbance, and anxiety; M19.90 Unspecified osteoarthritis, unspecified site; G89.29 Other chronic pain; M62.82 Rhabdomyolysis; D64.9 Anemia, unspecified; G25.81 Restless legs syndrome; K21.9 Gastro-esophageal reflux disease without esophagitis; T50.2X5A Adverse effect of carbonic-anhydrase inhibitors, benzothiadiazides and other diuretics, initial encounter; Z92.3 Personal history of irradiation; Z68.41 Body mass index [BMI] 40.0-44.9, adult; Z85.3 Personal history of malignant neoplasm of breast; Z79.899 Other long term (current) drug therapy; Z79.84 Long term (current) use of oral hypoglycemic drugs; Y92.89 Other specified places as the place of occurrence of the external cause
CPT/HCPCS: 36415; 71045; 72148; 76770; 80048; 80053; 80061; 81000-TC; 82550-TC; 82553-TC; 82962; 83605; 83735-TC; 83880; 84484; 85025; 86710; 87040-TC; 87081; 87086; 93005; 93306; 93970; 96361; 96365; 96375; 99285; G0378; J0692; J0696; J1650; J1815; J2270; J7030; J7060